=== PATIENT | male | born 1985 | race Two or more races ===

== ENCOUNTER 2016-10-21 11:13 | Emergency (ER) | payer SELFPAY ==
[~2016-10-21] VITALS: Ht 177.8 cm; Wt 74.8 kg
--- NOTE | 2016-10-21 11:24 | NUR ---
[id number] FROM [address]: SUDDEN ONSET MID-EPIGASTRIC ABD PAIN, NAUSEA, VOMITING. PLACED ON MONITOR. AWAITING MD ORDER
[2016-10-21] MEDS ORDERED: IV SET PRIMARY 1 EA INFUS.SET MC ONE (11:39)
[2016-10-21] MEDS ORDERED: HYDROMORPHONE 1 MG/1 ML DISP.SYRIN ONE (11:39)
[2016-10-21] MEDS ORDERED: ONDANSETRON HCL/PF 4 MG/2 ML VIAL ONE (11:39)
[2016-10-21] MEDS ORDERED: IV NS 0.9% 1,000 ML ONE (11:39)
[2016-10-21] MEDS ORDERED: IV NS 0.9% 1,000 ML BAG IV ONE (12:00)
[2016-10-21] MEDS ORDERED: ONDANSETRON HCL/PF 4 MG/2 ML VIAL IV ONE (12:00)
[2016-10-21] MEDS ORDERED: HYDROMORPHONE 1 MG/1 ML DISP.SYRIN IV ONE (12:00)
[2016-10-21 12:10] LABS: BASOPHILS # (AUTO) 0.1 /CMM (0.0-0.2); BASOPHILS % (AUTO) 1.1 % (0.0-2.0); EOSINOPHILS % (AUTO) 0.3 % (0.0-6.0); HEMATOCRIT 43 % (39-51); HEMOGLOBIN 14.5 g/dL (13.5-17.5); LYMPHOCYTES % (AUTO) 9.1 % (20.0-44.0); MEAN CORPUSCULAR HEMOGLOBIN 31 PG (26.0-33.0); MEAN CORPUSCULAR HGB CONC 34 g/dl (31.0-36.0); MEAN CORPUSCULAR VOLUME 91 fL (80-96); MONOCYTES # (AUTO) 0.2 /CMM (0.1-1.30); MONOCYTES % (AUTO) 1.8 % (2.0-12.0); NEUTROPHILS # (AUTO) 9.4 /CMM (1.8-8.9); NEUTROPHILS % (AUTO) 87.7 % (43.0-81.0); PLATELET COUNT (AUTO) 207 /CMM (150-450); RDW COEFFICIENT OF VARIATION 12.3 (11.5-15.0); WHITE BLOOD COUNT (AUTO) 10.7 K/uL (4.3-11.0)
--- NOTE | 2016-10-21 12:10 | NUR ---
PATIENT TAKEN TO CT.
[2016-10-21 12:20] LABS: CALCIUM, SERUM 8.4 mg/dL (8.5-10.1); CREATININE 0.7 mg/dL (0.6-1.3); POTASSIUM 3.7 mmol/L (3.5-5.1)
--- NOTE | 2016-10-21 12:20 | NUR ---
PATIENT RETURNED FROM CT.
[2016-10-21 12:24] LABS: PROTHROMBIN TIME 10.4 SECS (9.5-12.7)
[2016-10-21 12:26] LABS: ALBUMIN 4.2 g/dL (3.4-5.0); BILIRUBIN,DIRECT 0.1 mg/dL (0.0-0.2); BILIRUBIN,TOTAL 0.6 mg/dL (0.2-1.0); TOTAL PROTEIN, SERUM 7.1 g/dL (6.4-8.2)
--- NOTE | 2016-10-21 14:05 | NUR ---
Patient discharged to home in stable condition. Written and verbal after care instructions given. Patient verbalizes understanding of instruction.
[2016-10-21 15:03] VITALS: BP 128/86
== END 2016-10-21 14:05 | disposition home or self-care (01) ==
LOC: ER 11:14
DX: R10.13 Epigastric pain (principal)
CPT/HCPCS: 36415; 72128; 74176; 80048; 80076; 83690; 85025; 85730; 96361; 96374; 96375; 99284; A4606; J1170; J2405; J7030; Z7610

== ENCOUNTER → 2016-10-21 | Emergency (ER) | payer SELFPAY | END | disposition left against medical advice (07) | LOC: ER 15:18 | DX: Z53.21 Procedure and treatment not carried out due to patient leaving prior to being seen by health care provider (principal) ==